=== PATIENT | male | born 1950 | race Caucasian/White ===

== ENCOUNTER → 2023-12-19 11:28 | Outpatient (REF) | payer MEDICARE, SELFPAY | LOC: RAD 11:28 | PROVIDERS: ATTENDING PHYSICIAN Urology; FAMILY PHYSICIAN Family Medicine | DX: N28.89 Other specified disorders of kidney and ureter (principal) | CPT/HCPCS: 74170; Q9967 ==

== ENCOUNTER → 2023-12-20 13:17 | Outpatient (REF) | payer MEDICARE, SELFPAY | LOC: RADI 13:17 | PROVIDERS: ATTENDING PHYSICIAN Urology; FAMILY PHYSICIAN Family Medicine | DX: N28.89 Other specified disorders of kidney and ureter (principal) ==

== ENCOUNTER 2024-01-18 09:55 | Outpatient (RCR) | payer MEDICARE, SELFPAY | END 2024-01-18 23:59 | disposition home or self-care (01) | LOC: CRHB 09:55 | PROVIDERS: ATTENDING PHYSICIAN Nuclear Medicine Nuclear Cardiology; FAMILY PHYSICIAN Family Medicine | DX: Z95.1 Presence of aortocoronary bypass graft (principal); Z95.4 Presence of other heart-valve replacement | CPT/HCPCS: G0422; G0423 ==

== ENCOUNTER 2024-02-16 14:56 | Outpatient (RCR) | payer MEDICARE, SELFPAY | END 2024-02-16 23:59 | disposition home or self-care (01) | LOC: CRHB 14:56 | PROVIDERS: ATTENDING PHYSICIAN Nuclear Medicine Nuclear Cardiology; FAMILY PHYSICIAN Family Medicine | DX: Z95.1 Presence of aortocoronary bypass graft (principal); Z95.4 Presence of other heart-valve replacement | CPT/HCPCS: G0422; G0423 ==

== ENCOUNTER 2024-03-13 14:58 | Outpatient (RCR) | payer MEDICARE, SELFPAY ==
[2024-03-11 17:22] LABS: % Basophils 0.5 % (0-2); % Eosinophils 1.3 % (0-6); % Immature Granulocytes 0.2 % (0-0.5); % Lymphocytes 26.9 % (20.5-51.1); % Monocytes 9.7 % (1.7-9.3); % Neutrophils 61.4 % (42.2-75.2); Absolute Eosinophils 0.1 10^3/uL (0-0.7); Absolute Lymphocytes 1.7 10^3/uL (1.2-3.4); Absolute Monocytes 0.6 10^3/uL (0.1-0.6); Absolute Neutrophils 3.9 10^3/uL (1.4-6.5); Hematocrit 40.9 % (39.0-52.0); Hemoglobin 12.9 g/dL (13.0-18.0); Mean Corp Hgb Conc. 31.5 g/dL (33.0-37.0); Mean Corpuscular Hgb 25.7 pg (27.0-31.0); Mean Corpuscular Volume 81.6 fL (80.0-94.0); Mean Platelet Volume 10.3 fL (7.4-10.4); Nucleated Red Blood Cells % 0 % (-); Platelet Count 157 10^3/uL (130-400); Red Blood Cell Count 5.01 10^6/uL (4.70-6.10); White Blood Cell Count 6.4 10^3/uL (4.8-10.8)
[2024-03-11 17:39] LABS: ALT (SGPT) 29 U/L (0-50); AST (SGOT) 35 U/L (17-59); Albumin 4.6 g/dl (3.5-5.0); Alkaline Phosphatase 53 U/L (38-126); Blood Urea Nitrogen 27 mg/dl (9-20); Calcium 10.2 mg/dl (8.4-10.2); Carbon Dioxide 21 mmol/L (22-30); Chloride 106 mmol/L (98-107); Glucose 86 mg/dl (70-99); HDL Cholesterol 58 mg/dl; LDL Cholesterol, Calculated 52 mg/dl; Potassium 4.4 mmol/L (3.5-5.1); Sodium 137 mmol/L (135-145); Total Bilirubin 0.6 mg/dl (0.2-1.3); Total Cholesterol 126 mg/dl (50-199); Total Protein 7.3 g/dl (6.3-8.2); Triglyceride 83 mg/dl (10-149); Very Low Density Lipoprotein 16 mg/dl (0-30); eGFR > 60.00
== END 2024-03-13 23:59 | disposition home or self-care (01) ==
LOC: CRHB 14:58
PROVIDERS: ATTENDING PHYSICIAN Nuclear Medicine Nuclear Cardiology; FAMILY PHYSICIAN Family Medicine
DX: I25.10 Atherosclerotic heart disease of native coronary artery without angina pectoris (principal); Z95.1 Presence of aortocoronary bypass graft; I35.0 Nonrheumatic aortic (valve) stenosis; Z95.4 Presence of other heart-valve replacement; I10 Essential (primary) hypertension
CPT/HCPCS: 36415; 80053; 80061; 85025; G0422; G0423

== ENCOUNTER 2024-04-02 13:18 | Observation (INO) | payer MEDICARE, SELFPAY ==
[2024-04-02] VITALS (8 sets, daily range): BP systolic 57–156; BP diastolic 64–89
[2024-04-02 07:18] LABS: % Basophils 1.1 % (0-2); % Immature Granulocytes 0.2 % (0-0.5); % Lymphocytes 35.6 % (20.5-51.1); % Monocytes 11.6 % (1.7-9.3); % Neutrophils 49.5 % (42.2-75.2); Absolute Basophils 0.1 10^3/uL (0-0.2); Absolute Eosinophils 0.1 10^3/uL (0-0.7); Absolute Lymphocytes 1.9 10^3/uL (1.2-3.4); Absolute Monocytes 0.6 10^3/uL (0.1-0.6); Absolute Neutrophils 2.7 10^3/uL (1.4-6.5); Hematocrit 42.8 % (39.0-52.0); Hemoglobin 13.8 g/dL (13.0-18.0); Mean Corp Hgb Conc. 32.2 g/dL (33.0-37.0); Mean Corpuscular Hgb 26.4 pg (27.0-31.0); Mean Corpuscular Volume 81.8 fL (80.0-94.0); Mean Platelet Volume 9.3 fL (7.4-10.4); Nucleated Red Blood Cells % 0 % (-); Platelet Count 146 10^3/uL (130-400); Red Blood Cell Count 5.23 10^6/uL (4.70-6.10); Red Cell Dist. Width 18.9 % (11.5-14.5); White Blood Cell Count 5.5 10^3/uL (4.8-10.8)
[2024-04-02 07:27] LABS: INR 1.05; PT 13.6 Sec (11.4-14.6)
[2024-04-02 07:28] LABS: APTT 32.1 Sec (23.4-35.0)
[2024-04-02 07:31] LABS: ALT (SGPT) 31 U/L (0-50); AST (SGOT) 35 U/L (17-59); Albumin 4.5 g/dl (3.5-5.0); Alkaline Phosphatase 53 U/L (38-126); Blood Urea Nitrogen 24 mg/dl (9-20); Calcium 10.4 mg/dl (8.4-10.2); Carbon Dioxide 24 mmol/L (22-30); Chloride 108 mmol/L (98-107); Glucose 103 mg/dl (70-99); Potassium 4.1 mmol/L (3.5-5.1); Sodium 142 mmol/L (135-145); Total Bilirubin 0.6 mg/dl (0.2-1.3); Total Protein 7.3 g/dl (6.3-8.2); eGFR 58.37
[2024-04-02] MEDS: NSS 1000 IV ×2 (08:24→15:03)
[2024-04-02] MEDS: LEVAQUIN 100 IV (08:24)
[2024-04-02] MEDS: CRESTOR 20 MG PO (17:10)
[2024-04-02] MEDS: TYLENOL 650 MG PO (20:14)
[2024-04-02] MEDS: LOPRESSOR 50 MG PO (22:17)
[2024-04-02] MEDS: DESYREL 50 MG PO (22:17)
[2024-04-03] MEDS: TYLENOL 650 MG PO (02:30)
--- NOTE | 2024-04-03 03:49 | DOWNTIME ---
There was a [employer] Downtime on 04/02/2024 from 0100 to 04/03/2024 at 0300. Downtime documentation of patient's care, including medication administrations, has been reconciled in the electronic record per guidelines. Refer to the
patient's paper chart under the miscellaneous tab to see printed paper medication records and downtime forms.
--- NOTE | 2024-04-03 04:49 | PTCARENOTE ---
site checks to IR site completed throughout shift, no s/s bleeding, bruising, or hematoma. Two band-aids c/d/i. Pt c/o mild pain, refer to MAR for Tylenol administration - effective relief.
[2024-04-03 07:00] VITALS: BP 135/73
[2024-04-03] MEDS: LOPRESSOR 75 MG PO (07:41)
[2024-04-03] MEDS: PLAVIX 75 MG PO (07:41)
[2024-04-03] MEDS: LOW STRENGTH ASPIRIN 81 MG PO (07:41)
--- NOTE | 2024-04-03 07:54 | W.PN.GENERIC ---
Assessment / Plan
-
73 yo male with right renal mass who underwent renal ablation.
He is tolerating POs and voiding spontaneously
He is feeling well
Stable for discharge today
I spent 25 minutes counseling and coordinating care of this patient
Physician Progress Note
Subjective
73 yo male with right renal mass underwent renal thermal ablation yesterday. He is doing well. He has no hematuria. He denies abdominal or flank pain. He denies nausea or vomiting. He is tolerating POs and voiding spontaneously.
Objective
Vital Signs
Temp Pulse Resp BP Pulse Ox
98.7 F 86 16 125/64 98
04/02/24 22:23 04/02/24 22:23 04/02/24 22:23 04/02/24 22:23 04/02/24 22:23
Lab Results
04/02/24 07:05
04/02/24 07:05
73 yo male in NAD. Color is good. Skin warm and dry. Heart regular. Lungs clear. Abdomen is soft and nontender with bowel sounds. Dressing CDI. No hematoma. No flank pain. No LE edema
== END 2024-04-03 08:42 | disposition home or self-care (01) ==
LOC: 3 WEST ACU 13:18
PROVIDERS: ADMITTING PHYSICIAN Radiology Diagnostic Radiology; FAMILY PHYSICIAN Family Medicine; REFERRING PHYSICIAN Urology
DX: N28.89 Other specified disorders of kidney and ureter (principal)
CPT/HCPCS: 74170; Q9965; 36415; 50592; 76942; 77013; 80053; 85025; 85610; 85730; G0378

== ENCOUNTER → 2024-04-22 09:38 | Outpatient (REF) | payer MEDICARE, SELFPAY | LOC: WDC 09:38 | PROVIDERS: ATTENDING PHYSICIAN Family Medicine | DX: N64.4 Mastodynia (principal) | CPT/HCPCS: 76642; 77062; 77066 ==

== ENCOUNTER → 2024-06-06 12:10 | Outpatient (REF) | payer MEDICARE, SELFPAY ==
[2024-06-06 13:54] LABS: FSH 36.4 mIU/ml (1.55-9.74)
== END ==
LOC: REG 12:10
PROVIDERS: ATTENDING PHYSICIAN Family Medicine
DX: N64.4 Mastodynia (principal); N62 Hypertrophy of breast
CPT/HCPCS: 36415; 83001; 83002; 84270; 84402; 84403

== ENCOUNTER → 2024-07-04 13:53 | Outpatient (REF) | payer MEDICARE, SELFPAY ==
[2024-07-04 15:43] LABS: Chloride 104 mmol/L (98-107)
[2024-07-04 15:44] LABS: Blood Urea Nitrogen 26 mg/dl (9-20); Calcium 9.7 mg/dl (8.4-10.2); Carbon Dioxide 28 mmol/L (22-30); Glucose 81 mg/dl (70-99); Potassium 4.6 mmol/L (3.5-5.1); Sodium 138 mmol/L (135-145); eGFR > 60.00
== END ==
LOC: REG 13:53
PROVIDERS: ATTENDING PHYSICIAN Family Medicine
DX: R94.4 Abnormal results of kidney function studies (principal)
CPT/HCPCS: 36415; 80048

== ENCOUNTER → 2024-07-08 12:45 | Outpatient (REF) | payer MEDICARE, SELFPAY | LOC: HWRAD 12:45 | PROVIDERS: ATTENDING PHYSICIAN Radiology Diagnostic Radiology; FAMILY PHYSICIAN Family Medicine | DX: Z85.528 Personal history of other malignant neoplasm of kidney (principal) | CPT/HCPCS: 74170; Q9967 ==

== ENCOUNTER → 2024-08-14 09:32 | Outpatient (REF) | payer MEDICARE, SELFPAY ==
[2024-08-14 12:40] LABS: Prolactin 20.9 ng/ml (3.7-17.9)
[2024-08-14 12:54] LABS: TSH 0.99 uIU/ml (0.47-4.68)
== END ==
LOC: REG 09:32
PROVIDERS: ATTENDING PHYSICIAN Internal Medicine Endocrinology, Diabetes & Metabolism; REFERRING PHYSICIAN Family Medicine
DX: E78.5 Hyperlipidemia, unspecified (principal); N62 Hypertrophy of breast
CPT/HCPCS: 36415; 84146; 84443

== ENCOUNTER → 2024-11-22 12:48 | Outpatient (REF) | payer MEDICARE, SELFPAY | LOC: RCS 12:48 | PROVIDERS: ATTENDING PHYSICIAN Nuclear Medicine Nuclear Cardiology; FAMILY PHYSICIAN Family Medicine | DX: I10 Essential (primary) hypertension (principal); Z95.2 Presence of prosthetic heart valve; Z95.1 Presence of aortocoronary bypass graft | CPT/HCPCS: 93306 ==

== ENCOUNTER → 2024-11-29 09:27 | Outpatient (REF) | payer MEDICARE, SELFPAY | LOC: WDC 09:27 | PROVIDERS: ATTENDING PHYSICIAN Family Medicine | DX: N62 Hypertrophy of breast (principal) | CPT/HCPCS: 76642; 77061; 77065 ==

== ENCOUNTER → 2024-12-23 13:02 | Outpatient (REF) | payer MEDICARE, SELFPAY ==
[2024-12-23 15:09] LABS: Blood Urea Nitrogen 26 mg/dl (9-20)
== END ==
LOC: REG 13:02
PROVIDERS: ATTENDING PHYSICIAN Family Medicine; OTHER PHYSICIAN Radiology Diagnostic Radiology
DX: N28.89 Other specified disorders of kidney and ureter (principal)
CPT/HCPCS: 36415; 82565; 84520

== ENCOUNTER → 2024-12-24 15:36 | Outpatient (REF) | payer MEDICARE, SELFPAY | LOC: RAD 15:36 | PROVIDERS: ATTENDING PHYSICIAN Physician Assistant; FAMILY PHYSICIAN Family Medicine; REFERRING PHYSICIAN Urology | DX: C64.1 Malignant neoplasm of right kidney, except renal pelvis (principal) | CPT/HCPCS: 74170; Q9967 ==

== ENCOUNTER → 2025-06-27 07:59 | Outpatient (REF) | payer MEDICARE, SELFPAY ==
[2025-06-27 12:57] LABS: ALT (SGPT) 23 U/L (0-50); AST (SGOT) 25 U/L (17-59); Albumin 4.3 g/dl (3.5-5.0); Alkaline Phosphatase 36 U/L (38-126); Blood Urea Nitrogen 31 mg/dl (9-20); Calcium 9.5 mg/dl (8.4-10.2); Carbon Dioxide 26 mmol/L (22-30); Chloride 106 mmol/L (98-107); Glucose 97 mg/dl (70-99); HDL Cholesterol 45 mg/dl; LDL Cholesterol, Calculated 70 mg/dl; Potassium 4.6 mmol/L (3.5-5.1); Sodium 139 mmol/L (135-145); Total Protein 6.7 g/dl (6.3-8.2); Very Low Density Lipoprotein 13 mg/dl (0-30); eGFR > 60.00
== END ==
LOC: REG 07:59
PROVIDERS: ATTENDING PHYSICIAN Nuclear Medicine Nuclear Cardiology; FAMILY PHYSICIAN Family Medicine
DX: I10 Essential (primary) hypertension (principal); Z95.2 Presence of prosthetic heart valve; Z95.1 Presence of aortocoronary bypass graft; E78.5 Hyperlipidemia, unspecified
CPT/HCPCS: 36415; 80053; 80061

== ENCOUNTER → 2025-08-13 13:48 | Outpatient (REF) | payer MEDICARE, SELFPAY | LOC: HWRAD 13:48 | PROVIDERS: ATTENDING PHYSICIAN Physician Assistant; FAMILY PHYSICIAN Family Medicine; REFERRING PHYSICIAN Radiology Diagnostic Radiology | DX: D30.01 Benign neoplasm of right kidney (principal) | CPT/HCPCS: 74178; Q9967 ==

== ENCOUNTER → 2025-10-22 13:45 | Outpatient (REF) | payer MEDICARE, SELFPAY ==
[2025-10-22 15:30] LABS: Hematocrit 43.0 % (39.0-52.0); Hemoglobin 13.5 g/dL (13.0-18.0); Mean Corp Hgb Conc. 31.4 g/dL (33.0-37.0); Mean Corpuscular Volume 89.4 fL (80.0-94.0); Nucleated Red Blood Cells % 0 % (-); Platelet Count 171 10^3/uL (130-400); Red Cell Dist. Width 14.7 % (11.5-14.5)
[2025-10-22 15:42] LABS: Urine Character Clear (Clear)
[2025-10-22 16:07] LABS: Microalb - Urine Creatinine 60.900 mg/dl
[2025-10-22 16:13] LABS: Microalbumin, Random Urine < 0.6 mg/dl (0.6-1.7)
[2025-10-22 16:29] LABS: PSA, Total - Screen < 0.06 ng/ml (0.0-4.0); TSH 1.48 uIU/ml (0.47-4.68)
[2025-10-23 09:13] LABS: Glycohemoglobin (HgbA1c) 5.3 % (4.0-5.9)
== END ==
LOC: REG 13:45
PROVIDERS: ATTENDING PHYSICIAN Family Medicine
DX: Z00.00 Encounter for general adult medical examination without abnormal findings (principal); D69.6 Thrombocytopenia, unspecified; I10 Essential (primary) hypertension
CPT/HCPCS: 36415; 81003; 82043; 82570; 83036; 84443; 85025; G0103

== ENCOUNTER → 2025-11-05 07:22 | Outpatient (REF) | payer MEDICARE, SELFPAY | LOC: HWRAD 07:22 | PROVIDERS: ATTENDING PHYSICIAN Family Medicine | DX: K40.90 Unilateral inguinal hernia, without obstruction or gangrene, not specified as recurrent (principal); R22.41 Localized swelling, mass and lump, right lower limb | CPT/HCPCS: 76882 ==